=== PATIENT | female | born 1950 | race Hispanic/Latino ===

== ENCOUNTER 2016-09-05 09:13 | Outpatient (CLI) | payer MEDICARE ==
--- NOTE | 2016-09-05 14:09 | Cat Scan Report ---
CT chest without contrast: Pulmonary nodule. Transverse images were obtained through the chest into the upper abdomen. Coronal and sagittal 2-D reformatted images are included. No significant axillary, hilar, nor mediastinal adenopathy identified. Scattered coronary vascular calcification present. Normal heart size. On section 118 there is a 4.2 mm noncalcified peripheral nodule in the left lower lobe. On image 140 there is a well circumscribed noncalcified nodule measuring 7.6 mm in the periphery of the right lower lobe. Punctate calcifications with no soft tissue component or dentified in the left upper lobe on image 72 and in the left lower lobe on image 140. The lungs otherwise are clear, well aerated, and unremarkable. Sections through the upper abdomen demonstrate multiple hypodense masses in the right and left lobes of the liver with the largest measuring approximately 2 cm. These all have low attenuation consistent with cysts. The kidneys are partially visualized. 2 renal calculi are present in the right kidney and one visualized in the left. These measure approximately 6 mm each. No hydronephrosis. Impression: 1. Low suspicion pulmonary nodules. The presence of pulmonary calcification although not in the nodules suggest they may represent granulomas. 2. Renal calculi. Recommendation: In the absence of known cancer or significant smoking history a six-month followup CT is recommended to reevaluate for any interval changes in pulmonary findings.
== END 2016-09-05 09:14 | disposition home or self-care (01) ==
LOC: SPVIMAG 09:13
PROVIDERS: ATTEND Internal Medicine
DX: R91.1 Solitary pulmonary nodule (principal); J98.4 Other disorders of lung; N20.0 Calculus of kidney; K76.89 Other specified diseases of liver; I25.10 Atherosclerotic heart disease of native coronary artery without angina pectoris
CPT/HCPCS: 71250